=== PATIENT | female | born 1995 | race Two or more races ===

== ENCOUNTER 2021-03-28 15:40 | Emergency (ER) | payer OTHER ==
[~2021-03-28] VITALS: Ht 154.9 cm; Wt 52.2 kg
[2021-03-28] MEDS ORDERED: ZITHROMAX500 MG PO (20:09)
[2021-03-28] MEDS ORDERED: TUSNEL LIQUID178 ML PO (20:09)
== END 2021-03-28 20:23 | disposition home or self-care (01) ==
LOC: ER 15:40
DX: J06.9 Acute upper respiratory infection, unspecified (principal); Z20.822 Contact with and (suspected) exposure to COVID-19